=== PATIENT | female | born 1965 | race Caucasian/White ===

== ENCOUNTER 2020-10-20 01:42 | Outpatient (CLI) | payer BC, SELFPAY ==
--- NOTE | 2020-10-20 | DI.US_ITS ---
Exam(s) US NEEDLE LOCAL OTHER WO RAD EXAM: LT THYROID NODULE, E04.1, FINE NEEDLE ASPIRATION OF NODULE UNDER ULTRASOUND COMPARISON: No exams were available for comparison TECHNIQUE: Ultrasound performed using standard protocol. FINDINGS: Sonography was provided for Dr. Green during the performance of a fine-needle aspiration of a left thyroid nodule. Please refer to the procedure report for complete details. DATA REPOSITORY:
--- NOTE | 2020-10-20 08:20 | PAPNONF_PTH ---
PATIENT: Juanita Gunter LOC: [facility] U#:[id number] AGE/SX: 55/F ROOM: RE10/20/[address]: Silviano Green MD : 1965 BED: DIS: 10/20/2020 SPEC #: [id number] RECD: 10/20/20 12:51 STATUS: BEN REQ #: [id number] DARIUS: 10/20/20 08:[address]: Silviano Green DEPT: [facility] Cytology RECD BY: Briana Jay ENTERED: 10/20/20 12:51 SP TYPE: CHAR DAVID DR: Unknown,Unknown Tissues: 1 - BODY FLUID CYTO-FINE NEEDLE ASPIRATE-[facility] Procedures: BODY FLUID CYTO-FINE NEEDLE ASPIRATE[facility] Comments: [id number]
--- NOTE | 2020-10-20 08:56 | W.PROCNOTE ---
Procedure Note Date of procedure: 10/20/20 Procedure: Ultrasound guided thyroid FNA, pathology present, left thyroid nodule Surgeon/Proceduralist/Physician: Silviano Green Procedure Diagnosis: Multinodular thyroid Procedure Indications: The patient has a lesion on the left concerning for neoplastic change. Options were explained to the family regarding further management. She elected to undergo Whipple procedure. Consent was filled out and signed prior to procedure. Procedure Description: The patient was positioned in a supine position with her neck extended. Ultrasound was used to visualize the thyroid, and then to localize the nodule of concern on the left. 1% lidocaine with 1/100,000 epinephrine was injected into the left subcutaneous tissues, and skin overlying the nodule following appropriate prepping and draping. A 25-gauge needle was then passed repeatedly into the thyroid nodule to obtain sample. Pathology felt that the sample was adequate. Affirma was also performed. Wound site was checked for hemostasis. After verifying hemostasis the patient was allowed to sit, and then to ambulate. Her vital signs remained stable. A sterile dressing was applied to the surgical site. She will call me if she does not hear from me within 1 week with regard to pathology she will call with any problems. She had no further questions. She is comfortable with the plan.
== END 2020-10-20 02:02 ==
PROVIDERS: PCP Family Medicine; Visit Provider Otolaryngology
DX: E04.1 Nontoxic single thyroid nodule (principal); C73 Malignant neoplasm of thyroid gland
CPT/HCPCS: 10005; 76942; 88104

== ENCOUNTER 2022-07-06 01:14 | Outpatient (CLI) | payer BC, SELFPAY ==
--- NOTE | 2022-07-06 07:00 | DI.MRI_ITS ---
Exam(s) MR IAC BRAIN WO/W EXAM: MR IAC BRAIN WO/W CLINICAL HISTORY: Dizziness, asymmetrical hearing loss,R42,H90.3. TECHNIQUE: Multiplanar multisequence MRI of the brain and internal auditory canals was performed. CONTRAST MATERIAL: IV Contrast: 20 mL of Dotarem contrast administered. COMPARISON: No exams were available for comparison FINDINGS: VENTRICLES AND EXTRA AXIAL SPACES: Normal in size and morphology for the patient's age. HEMORRHAGE: None. CEREBRAL PARENCHYMA: No focus of restricted diffusion to suggest acute infarct. No space-occupying le alex identified. There are several foci of hyperintense signal seen in the white matter on the FLAIR and T2 weighted images likely reflecting small vessel ischemic disease. MIDLINE SHIFT: None. BRAINSTEM/CEREBELLUM: Normal. CALVARIUM: Normal. ENHANCEMENT: No suspicious enhancement identified. VISUALIZED PARANASAL SINUSES/MASTOIDS: Clear. [place]: Normal flow void. PITUITARY GLAND: Unremarkable. IAC/CP ANGLE: The internal auditory canals are within normal limits. The cerebellar pontine angles ar e unremarkable. No enhancing lesions are seen. Visualized portion of the facial nerves appear within normal limits. OTHER FINDINGS: None. IMPRESSION: 1. No evidence of a mass or enhancing lesion associated with the internal auditory canals or cerebell opontine angles. 2. No acute intracranial process. DATA REPOSITORY:
[2022-07-06 10:26] LABS: CREATININE 0.8 mg/dL (0.55-1.02); Estimated GFR 85.35 (mL/min/1.73m2)
[2022-07-06] MEDS: Normal Saline Flush 10 ML SYR IVP (10:43)
[2022-07-06] MEDS: Gadoterate meglumine 20 ML VIAL IVP (10:44)
== END 2022-07-06 01:34 ==
LOC: DI 01:15
PROVIDERS: Registered Nurse Maternal Newborn; PCP Family Medicine; Visit Provider Otolaryngology
DX: H90.3 Sensorineural hearing loss, bilateral (principal); R42 Dizziness and giddiness
CPT/HCPCS: 70553; 82565